=== PATIENT | male | born 1945 | race Caucasian/White ===

== ENCOUNTER 2016-10-15 16:33 | Emergency (ER) | payer MEDICARE, OTHER ==
[~2016-10-15] VITALS: Ht 167.6 cm; Wt 63.5 kg
--- NOTE | ~2016-10-15 | EKG ---
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 10/16/16 0735 09 09 Sahil Schafer MD, [facility] /EPI
[~2016-10-15 16:33] MED LIST: COLACE100 MG PO; MIRALAX17 GM PO
[2016-10-15 17:15] LABS: ABSOLUTE NEUTROPHILS 6.2 thou/uL (1.4-8.2); BASOPHILS 0.9 % (0.0-2.0); EOSINOPHILS 0.8 % (0.0-3.0); HEMATOCRIT 47.1 % (42.0-52.0); HEMOGLOBIN 15.8 gm/dL (14.0-18.0); LYMPHOCYTES 14.2 % (24.0-44.0); MCH 30.5 pg (26.0-34.0); MCHC 33.4 % (28.0-37.0); MCV 91.3 fL (80.0-100.0); PLATELET COUNT 224 thou/uL (150-400); POLYS 78.1 % (36.0-66.0); RBC 5.16 mil/uL (4.50-6.00); RDW 12.6 % (10.5-14.5)
[2016-10-15 17:21] LABS: ANION GAP 6 mmol/L (7-16); BUN 17 mg/dL (7-18); CALCIUM 9.3 mg/dL (8.5-10.1); CHLORIDE 101 mmol/L (98-107); CO2 30 mmol/L (21-32); CREATININE 0.9 mg/dL (0.6-1.3); GLUCOSE 117 mg/dL (70-99); MANUAL DIFF NO; POTASSIUM 4.1 mmol/L (3.5-5.1); SODIUM 137 mmol/L (136-145)
[2016-10-15 17:29] LABS: TROPONIN-I < 0.04 ng/mL (<0.04-0.07)
[2016-10-15 19:50] VITALS: BP 99/49
[2016-10-15] MEDS ORDERED: ZOFRAN ODT4 MG PO (19:56)
[2016-10-15] MEDS ORDERED: ANTIVERT25 MG PO (19:56)
== END 2016-10-15 20:02 | disposition home or self-care (01) ==
LOC: ER 16:33
PROVIDERS: Emergency Medicine
DX: R42 Dizziness and giddiness (principal); R11.0 Nausea

== ENCOUNTER 2018-12-09 18:03 | Emergency (ER) | payer MEDICARE, OTHER ==
[~2018-12-09] VITALS: Ht 167.6 cm; Wt 72.6 kg
[~2018-12-09 18:03] MED LIST changes: +ANTIVERT25 MG PO; +ZOFRAN ODT4 MG PO
[2018-12-09 18:04] VITALS: BP 122/66
== END 2018-12-09 18:55 | disposition home or self-care (01) ==
LOC: ER 18:03
DX: K08.89 Other specified disorders of teeth and supporting structures (principal)

== ENCOUNTER 2019-10-11 09:56 | Emergency (ER) | payer MEDICARE, OTHER ==
[~2019-10-11] VITALS: Ht 167.6 cm; Wt 68.0 kg
[2019-10-11 10:34] LABS: URINE BILIRUBIN NEGATIVE (Negative); URINE BLOOD NEGATIVE (Negative); URINE CLARITY CLEAR; URINE COLOR YELLOW; URINE GLUCOSE-RANDOM* NEGATIVE (Negative); URINE KETONES NEGATIVE (Negative); URINE LEUKOCYTES-REFLEX NEGATIVE (Negative); URINE NITRITE-REFLEX NEGATIVE (Negative); URINE PROTEIN (DIPSTICK) NEGATIVE (Negative); URINE UROBILINOGEN 0.2 E.U./dl (0.2-1.0)
[2019-10-11 10:41] LABS: ABSOLUTE NEUTROPHILS 6.4 thou/uL (1.4-8.2); BASOPHILS 0.6 % (0.0-2.0); EOSINOPHILS 1.6 % (0.0-3.0); HEMATOCRIT 45.6 % (42.0-52.0); HEMOGLOBIN 15.2 gm/dL (14.0-18.0); LYMPHOCYTES 12.5 % (24.0-44.0); MCH 30.4 pg (26.0-34.0); MCHC 33.3 g/dL (28.0-37.0); MCV 91.2 fL (80.0-100.0); MONOCYTES 9.9 % (1.0-8.0); PLATELET COUNT 248 thou/uL (150-400); POLYS 75.4 % (36.0-66.0); RDW 12.7 % (10.5-14.5); WBC 8.5 thou/uL (4.0-11.0)
[2019-10-11 10:50] LABS: CALCIUM 9.8 mg/dL (8.5-10.1); CREATININE 1.1 mg/dL (0.7-1.3); POTASSIUM 4.2 mmol/L (3.5-5.1)
[2019-10-11 10:56] LABS: ALBUMIN 3.9 g/dL (3.4-5.0); TOTAL BILIRUBIN 0.8 mg/dL (<0.1-1.0); TOTAL PROTEIN 7.5 g/dL (6.4-8.2)
[2019-10-11] MEDS ORDERED: TESSALON PERLE100 MG PO (12:11)
[2019-10-11] MEDS ORDERED: PEPCID AC20 MG PO (12:11)
[2019-10-11 12:45] VITALS: BP 109/58
== END 2019-10-11 12:30 | disposition home or self-care (01) ==
LOC: ER 09:56
PROVIDERS: Emergency Medicine
DX: K21.9 Gastro-esophageal reflux disease without esophagitis (principal); J06.9 Acute upper respiratory infection, unspecified; R05 Cough

== ENCOUNTER 2020-04-10 09:01 | Emergency (ER) | payer MEDICARE, OTHER ==
[~2020-04-10] VITALS: Ht 172.7 cm; Wt 68.0 kg
[~2020-04-10 09:01] MED LIST changes: +PEPCID AC20 MG PO; +TESSALON PERLE100 MG PO
[2020-04-10 09:05] VITALS: BP 129/64
== END 2020-04-10 09:29 | disposition home or self-care (01) ==
LOC: ER 09:01
DX: K40.20 Bilateral inguinal hernia, without obstruction or gangrene, not specified as recurrent (principal); Z87.891 Personal history of nicotine dependence; Z79.899 Other long term (current) drug therapy

== ENCOUNTER → 2020-05-05 | Outpatient (CLI) | payer MEDICARE, OTHER | LOC: LAB 11:10 | PROVIDERS: ATTEND Student in an Organized Health Care Education/Training Program | DX: Z01.812 Encounter for preprocedural laboratory examination (principal); Z11.59 Encounter for screening for other viral diseases ==

== ENCOUNTER 2020-05-10 06:06 | Day surgery (SDC) | payer MEDICARE, OTHER ==
[~2020-05-10] VITALS: Ht 165.1 cm; Wt 65.8 kg
[2020-05-10 06:51] LABS: HEMATOCRIT 42.7 % (42.0-52.0); HEMOGLOBIN 14.4 gm/dL (14.0-18.0); MCH 30.7 pg (26.0-34.0); MCHC 33.7 g/dL (28.0-37.0); MCV 91.1 fL (80.0-100.0); RBC 4.69 mil/uL (4.50-6.00); RDW 12.7 % (10.5-14.5)
[2020-05-10 07:01] VITALS: BP 113/53
[2020-05-10 07:09] LABS: CALCIUM 8.5 mg/dL (8.5-10.1); CREATININE 1.1 mg/dL (0.7-1.3); POTASSIUM 4.3 mmol/L (3.5-5.1)
[2020-05-10] MEDS ORDERED: MIRALAX17 GM PO (09:12)
[2020-05-10] MEDS ORDERED: HYDROCODON-ACE1 EAC7 PO (09:12)
[2020-05-10] MEDS ORDERED: COLACE 100 MG100 MG PO (09:12)
[2020-05-10 09:29] VITALS: BP 113/53
== END 2020-05-10 10:13 | disposition home or self-care (01) ==
LOC: OR 06:06 → TBA 06:06 → OR 10:13
PROVIDERS: ATTEND Surgery
DX: K40.90 Unilateral inguinal hernia, without obstruction or gangrene, not specified as recurrent (principal); K21.9 Gastro-esophageal reflux disease without esophagitis; Z98.890 Other specified postprocedural states; Z87.891 Personal history of nicotine dependence
CPT/HCPCS: 50010; 50101; 50249; 50411; 50555; 50558; 50854; 50984; 52265; 52266; 53307; 53310; 54022; 54118; 56462; 56525; 56526; 62110; 62900; 70005

== ENCOUNTER 2020-05-13 14:25 | Emergency (ER) | payer MEDICARE, OTHER ==
[~2020-05-13] VITALS: Ht 165.1 cm; Wt 65.8 kg
[~2020-05-13 14:25] MED LIST changes: +COLACE 100 MG100 MG PO; +HYDROCODON-ACE1 EAC7 PO
[2020-05-13 15:22] LABS: ABSOLUTE NEUTROPHILS 4.6 thou/uL (1.4-8.2); BASOPHILS 1.1 % (0.0-2.0); HEMATOCRIT 38.9 % (42.0-52.0); HEMOGLOBIN 13.5 gm/dL (14.0-18.0); LYMPHOCYTES 15.8 % (24.0-44.0); MCH 31.5 pg (26.0-34.0); MCHC 34.7 g/dL (28.0-37.0); MCV 90.9 fL (80.0-100.0); MONOCYTES 10.1 % (1.0-8.0); PLATELET COUNT 215 thou/uL (150-400); RBC 4.28 mil/uL (4.50-6.00); RDW 12.6 % (10.5-14.5); WBC 6.5 thou/uL (4.0-11.0)
[2020-05-13 15:28] LABS: ANION GAP 7 mmol/L (7-16); BUN 16 mg/dL (7-18); CALCIUM 8.3 mg/dL (8.5-10.1); CHLORIDE 100 mmol/L (98-107); CO2 29 mmol/L (21-32); GLUCOSE 144 mg/dL (74-106); POTASSIUM 3.9 mmol/L (3.5-5.1); SODIUM 136 mmol/L (136-145)
[2020-05-13 15:39] LABS: ALBUMIN 3.2 g/dL (3.4-5.0); LIPASE 82 U/L (73-393); SGOT 23 U/L (15-37); SGPT 24 U/L (30-65); TOTAL BILIRUBIN 0.4 mg/dL (0.2-1.0); TOTAL PROTEIN 6.3 g/dL (6.4-8.2); TROPONIN-I <0.06 ng/mL (<0.06)
[2020-05-13 16:05] LABS: URINE BILIRUBIN NEGATIVE (Negative); URINE BLOOD NEGATIVE (Negative); URINE CLARITY CLEAR; URINE COLOR YELLOW; URINE GLUCOSE-RANDOM* NEGATIVE (Negative); URINE KETONES NEGATIVE (Negative); URINE LEUKOCYTES-REFLEX NEGATIVE (Negative); URINE NITRITE-REFLEX NEGATIVE (Negative); URINE PROTEIN (DIPSTICK) NEGATIVE (Negative); URINE SPECIFIC GRAVITY 1.015 (1.005-1.035); URINE UROBILINOGEN 0.2 E.U./dl (0.2-1.0)
[2020-05-13 16:52] VITALS: BP 134/61
--- NOTE | 2020-05-14 10:21 | EKG ---
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
== END 2020-05-13 16:58 | disposition home or self-care (01) ==
LOC: ER 14:25
PROVIDERS: Emergency Medicine
DX: R53.1 Weakness (principal); R42 Dizziness and giddiness; Z79.899 Other long term (current) drug therapy; Z87.891 Personal history of nicotine dependence